=== PATIENT | male | born 1990 | race Two or more races ===

== ENCOUNTER 2024-01-04 00:26 | Emergency (ER) | payer MEDICAID ==
[~2024-01-04] VITALS: Ht 177.8 cm; Wt 81.6 kg
[2024-01-04 00:30] VITALS: TEMP 98.2
[2024-01-04 00:34] VITALS: BP 145/77; O2SAT 98
[2024-01-04] MEDS ORDERED: CEPH500T PO (00:50)
[2024-01-04] MEDS ORDERED: TDAP [DIPH/PERTUSSIS/TET] 0.5 ML VIAL IM ONE (00:54)
[2024-01-04] MEDS: TDAP [DIPH/PERTUSSIS/TET] 0.5 ML VIAL IM ONE (01:10)
== END 2024-01-04 01:05 | disposition home or self-care (01) ==
LOC: ER 00:32
DX: S01.01XA Laceration without foreign body of scalp, initial encounter (principal); S09.90XA Unspecified injury of head, initial encounter; Z60.2 Problems related to living alone; V49.9XXA Car occupant (driver) (passenger) injured in unspecified traffic accident, initial encounter; Y93.89 Activity, other specified; Y92.89 Other specified places as the place of occurrence of the external cause; Y99.8 Other external cause status
CPT/HCPCS: 99283; 90471; 90715; A6403